=== PATIENT | male | born 2000 | race Caucasian/White ===

== ENCOUNTER 2025-06-15 18:10 | Emergency (ER) | payer BC, SELFPAY ==
[2025-06-15 18:23] VITALS: BP 154/103
--- NOTE | 2025-06-15 22:09 | ED.GENMED ---
History of Present Illness
General
Chief Complaint: DVT/Possible Blood Clot
Source: patient
Time Seen by Provider: 06/15/25 21:29
History of Present Illness
History of Present Illness:
25-year-old male presents to the emergency room complaining of pain and redness to his left posterior calf. Patient's been experiencing the symptoms for the past 2 weeks. They seem worse over the past couple days. Symptoms stuff and get worse
when he walks more. No known trauma. No fever or chills. He has not been taking anything for the pain. He denies any chest pain or shortness of breath.
Past History
Past History
ED Past Medical History: Other (obesity)
ED Past Surgical History: Other (oral surgery)
Social History
Tobacco: Non-smoker
Phy Exam
Physical Exam
Physical Exam:
General: Awake, Alert, Oriented X3. No acute distress. High BMI
Vitals: unremarkable
Head: Atraumatic
Eyes: Pupils equal, EOMI
Throat: Airway intact, no exudates
Neck: Trachea midline
Lungs: Clear and equal b/l
Heart: Regular rate, no murmurs
Neuro: Nonfocal
Skin: Warm, dry, no rash
Extremities: pulses equal b/l, no edema. Area of erythema noted just below the popliteal fossa down about the top third of the calf. There are some erythema that also comes around to the anterior surface. Area is somewhat tender. No palpable
cord.
Course
Orders/Labs/Results
Orders:
Orders
06/15/25 18:16
Periph Venous Lwr Ext Left US [US Periph Venous LOWER Ext LT] Urgent
Comment:
Reason For Exam: pain, swelling, redness x 2 weeks.
06/15/25 22:11
Cephalexin Monohydrate [Keflex] 500 mg PO NOW STA
Vital Signs
Initial and Last Documented VS:
Initial Vital Signs
Temp Pulse Resp BP Pulse Ox
98.3 F 82 20 154/103 99
06/15/25 18:23 06/15/25 18:23 06/15/25 18:23 06/15/25 18:23 06/15/25 18:23
Last Documented Vital Signs
Temp Pulse Resp BP Pulse Ox
98.3 F 82 20 139/88 96
06/15/25 18:23 06/15/25 18:23 06/15/25 18:23 06/15/25 22:27 06/15/25 22:30
MDM/Problems Addressed
Differential Diagnosis Includes:
DVT, superficial thrombophlebitis, cellulitis
MDM/Problems Addressed:
Patient has no DVT on ultrasound. Will treat with warm compresses, baby aspirin in case it is a superficial thrombophlebitis as well as Keflex for cellulitis
*Radiology
Radiology exam reviewed: radiology read reviewed
*Pulse Oximetry
SaO2: 99
Oxygen Mode of Delivery: Room air
Patient hypoxic: no
*Critical Care Note
Total Time (30-74mins, 75-104mins- exclusive of procedures): Not Applicable
ED Attending Note
-
Portions of this chart may have been created with voice recognition software.� Occasional wrong word or��sound alike� substitutions may have occurred due to the inherent limitations of voice recognition software.
Discharge Plan
Departure
Patient Disposition: Home (Routine Discharge)
Date of Disposition: 06/15/25
Time of Disposition: 22:09
Patient with high blood pressure during this ER visit?: Yes
Condition: Good
Discharge Problem:
Left leg pain, Cellulitis of leg, left
Instructions: Cellulitis (Skin Infection), Adult (DC), BLOOD PRESSURE
Prescriptions:
New
cephalexin 500 mg capsule
500 mg PO BID Qty: 14 0RF
Referrals:
NONE,* [Active, Internal Medicine]
Activity Restrictions/Additional Instructions:
Apply warm compresses to the area. Take antibiotics twice a day for 7 days.
Interventions
Interventions:
*General Assessment Last Done: 06/15/25 22:28
*Neglect/Abuse Screening Last Done: 06/15/25 22:28
*ED COVID-19 Vaccine History Last Done: 06/15/25 18:23
*ED Influenza Vaccine History Last Done: 06/15/25 18:23
[facility] Fall Risk Assessment Tool Last Done: 06/15/25 22:28
*Risk Screen - Suicide (C-SSRS) Last Done: 06/15/25 18:23
*Nursing Disposition Last Done: 06/15/25 22:35
ED- Cardiac Assessment Last Done: 06/15/25 22:28
ED- Pulmonary Assessment Last Done: 06/15/25 22:28
ED-Peripheral Vascular Assessment Last Done: 06/15/25 22:28
ED-Skin Assessment Last Done: 06/15/25 22:28
Discharge Date and Time
Discharge Date/Time: 06/15/25 22:36
Print Language: LITHUANIAN
[2025-06-15] MEDS: KEFLEX 500 MG PO (22:23)
[2025-06-15 22:24] VITALS: BMI 48.0
[2025-06-15 22:27] VITALS: BP 139/88
== END 2025-06-15 22:36 | disposition home or self-care (01) ==
LOC: EMR 18:10
PROVIDERS: EMERGENCY PHYSICIAN Emergency Medicine; FAMILY PHYSICIAN Family Medicine
DX: L03.116 Cellulitis of left lower limb (principal); M79.605 Pain in left leg; R03.0 Elevated blood-pressure reading, without diagnosis of hypertension; E66.9 Obesity, unspecified
CPT/HCPCS: 99284; 93971